=== PATIENT | female | born 1945 | race Caucasian/White ===

== ENCOUNTER 2017-04-16 17:44 | Inpatient (IN) | payer OTHER ==
--- NOTE | 2017-04-16 18:11 | CPEKG ---
Heart Rate: 76 RR Interval: 789 P-R Interval: 188 QRSD Interval: 82 QT Interval: 408 QTC Interval: 459 P [place]: 49 QRS [place]: -12 T Wave [place]: 10 EKG Severity - ABNORMAL ECG - EKG Impression: SINUS RHYTHM EKG Impression: LEFT VENTRICULAR HYPERTROPHY Electronically Signed By: Dallas Tinajero 16-Apr-2017 18:49:48
[2017-04-16] MEDS ORDERED: NITROGLYCERIN/DEXTROSE 250 ML IV ONE (18:44)
[2017-04-16] MEDS ORDERED: ASPIRIN 81 MG CHEWABLE TAB PO ONE (18:44)
[2017-04-16 18:55] LABS: ANION GAP 12 mEq/L (8-16); CALCIUM 9.1 mg/dL (8.5-10.4); CARBON DIOXIDE 24 mEq/l (22-31); CHLORIDE 107 mEq/L (97-110); CREATININE 1.1 mg/dL (0.6-1.0); GLOMERULAR FILTRATION RATE 49; GLUCOSE 84 mg/dL (70-100); POTASSIUM 4.2 mEq/L (3.5-5.2); SODIUM 143 mEq/L (134-144)
[2017-04-16 18:57] LABS: % IMMATURE GRANULYOCYTES 0.6 % (0.0-1.1); ABSOLUTE IMMATURE GRANULOCYTES 0.03 10^3/uL (0.00-0.10); ADD DIFF? NO; ADD MORPH? NO; ADD SCAN? NO; ATYPICAL LYMPHOCYTE FLAG 20 (0-99); FRAGMENT RBC FLAG 0 (0-99); HEMATOCRIT 39.9 % (38.0-47.0); HEMOGLOBIN 13.6 g/dL (12.6-16.3); LEFT SHIFT FLG 0 (0-99); LIPEMIA HEMOLYSIS FLAG 90 (0-99); MEAN CELL HEMOGLOBIN CONCENTR. 34.1 g/dL (32.4-36.7); MEAN CELL VOLUME 90.9 fL (81.5-99.8); MEAN PLATELET VOLUME 10.3 fL (8.7-11.7); PLATELET CLUMPS FLAG 10 (0-99); PLATELET COUNT 193 10^3/uL (150-400); RED BLOOD CELL COUNT 4.39 10^6/uL (4.18-5.33); RED CELL DISTRIBUTION WIDTH 13.3 % (11.5-15.2)
--- NOTE | 2017-04-16 19:05 | EDPHY ---
H & P Time Seen by Provider: 04/16/17 18:04 HPI/ROS: CHIEF COMPLAINT: Chest pain HISTORY OF PRESENT ILLNESS: Patient is a history of cardiac stenting but is visiting from [place]. She can' t remember for last stent was in 2014 or 2010 but the symptoms are exactly which she had prior to her previous stenting. About once a year she gets the symptoms but she got these last week and then again on Wednesday and then since 2:00 p.m. today she has felt a heaviness in her chest which does not radiate and is located centrally and associated with feeling dizzy and lightheaded. Not short of breath. Little bit worse with exertion. Definitely not pleuritic. Symptoms moderate on arrival to the ER. REVIEW OF SYSTEMS: Eye: no change in vision ENT: no sore throat Cardiac: HPI Pulmonary: no cough or SOB Abdomen: no vomiting, diarrhea, abdominal pain Musculoskeletal: Intermittent bilateral leg cramping for years unchanged Skin: no rash Neuro: no headache Constitutional: no fever : no urinary symptoms A comprehensive 10 point review of systems is otherwise negative aside from elements mentioned in the history of present illness. PAST MEDICAL HISTORY: Coronary disease with cardiac stenting. Breast cancer diagnosed in December 2015 without current treatment. No previous history of DVT or PE. Social history: Visiting from [place], not a current smoker. General Appearance: Alert and conversant, cooperative. Eyes: No scleral icterus. ENT, Mouth: Normal mucous membranes. Respiratory: Normal respiratory effort, breath sounds equal, lungs are clear to auscultation. Not splinting. Cardiovascular: Regular rate and rhythm. No murmurs. Gastrointestinal: Abdomen is soft and non tender. Neurological: Alert and oriented x3. Normally conversant. Face symmetric, normal movement and sensation in all extremities. Skin: Warm and dry, no rashes. Musculoskeletal: No calf tenderness or edema. Psychiatric: Not agitated. Emergency Department course/MDM: Today, patient took a single nitroglycerin with a little bit of relief. She started on IV nitroglycerin and given oral aspirin. Concern for acute coronary syndrome given symptoms identical to her previous stenting. I think it is unlikely this symptoms are from pulmonary embolism, not pleuritic, no lower extremity tenderness or edema, not tachycardic or tachypneic or hypoxemic. Plan for labs to include troponin and admission to hospitalist service with Cardiology consultation. 2000: better with Nitroglycerin dripLucy at this time. Admit for risk stratification with chest pain in a patient with prior coronary disease and similar symptoms to previous coronary occlusions. 2046: Vish Frausto for cardiology will consult. 2129: No chest pain, 148 systolic blood pressure, on nitroglycerin drip. Smoking Status: Never smoked Constitutional: Initial Vital Signs Temperature (C) 36.8 C 04/16/17 17:46 Heart Rate 85 04/16/17 17:46 Respiratory Rate 18 04/16/17 17:46 Blood Pressure 209/98 H 04/16/17 17:46 O2 Sat (%) 98 04/16/17 17:46 O2 Delivery Mode Nasal Cannula O2 (L/minute) 2 Allergies/Adverse Reactions: No Known Allergies Allergy (Unverified 04/16/17 17:45) Home Medications: Medication Instructions Recorded Aspirin [Aspirin 81mg (*)] 81 mg PO HS 04/16/17 Carvedilol [Coreg (*)] 25 mg PO BIDMEAL 04/16/17 Cholecalciferol Vit D3 [Vitamin D3 1,000 units PO DAILY 04/16/17 (*)] Herbals/Supplements -Info Only 1 ea PO DAILY 04/16/17 Isosorbide Mononitrate [Isosorbide 60 mg PO DAILY 04/16/17 Mononitrate ER] Medical Decision Making - Diagnostics EKG Interpretation: 12-lead EKG interpreted by me; official reading is in trace master. My interpretation is sinus rhythm with LVH, rate 76, no acute ST changes. Imaging Results: Imaging Impressions Chest X-Ray 04/16/17 18:44 Impression: Coronary stents. No acute cardiopulmonary features. Differential Diagnosis: Differential diagnosis considered for chest pain including but not limited to myocardial ischemia, aortic dissection, pericarditis, pulmonary embolus, chest wall pain, pleural inflammation and pulmonary infectious causes. Critical Care Time: Critical care time spent by me, Dr. Tinajero, exclusively with the care of this patient was 30 minutes, exclusive of PA or INVESTIGATOR FRAUD time and exclusive of separate procedures. The organ system at risk was cardiovascular and I ordered oral aspirin, IV nitroglycerin, consultation with hospitalist and to stabilize the patient and prevent worsening of the patient's condition. - Data Points Laboratory Results: Laboratory Results 04/16/17 18:04 04/16/17 18:04 04/16/17 04/16/17 18:04 18:04 WBC 5.41 10^3/uL 10^3/uL (3.80-9.50) RBC 4.39 10^6/uL 10^6/uL (4.18-5.33) Hgb 13.6 g/dL g/dL (12.6-16.3) Hct 39.9 % % (38.0-47.0) MCV 90.9 fL fL (81.5-99.8) MCH 31.0 pg pg (27.9-34.1) MCHC 34.1 g/dL g/dL (32.4-36.7) RDW 13.3 % % (11.5-15.2) Plt Count 193 10^3/uL 10^3/uL (150-400) MPV 10.3 fL fL (8.7-11.7) Neut % (Auto) 65.6 % % (39.3-74.2) Lymph % (Auto) 22.2 % % (15.0-45.0) [place] % (Auto) 9.1 % % (4.5-13.0) Eos % (Auto) 1.8 % % (0.6-7.6) Baso % (Auto) 0.7 % % (0.3-1.7) Nucleat RBC Rel Count 0.0 % % (0.0-0.2) Absolute Neuts (auto) 3.55 10^3/uL 10^3/uL (1.70-6.50) Absolute Lymphs (auto) 1.20 10^3/uL 10^3/uL (1.00-3.00) Absolute Monos (auto) 0.49 10^3/uL 10^3/uL (0.30-0.80) Absolute Eos (auto) 0.10 10^3/uL 10^3/uL (0.03-0.40) Absolute Basos (auto) 0.04 10^3/uL 10^3/uL (0.02-0.10) Absolute Nucleated RBC 0.00 10^3/uL 10^3/uL (0-0.01) Immature Gran % 0.6 % % (0.0-1.1) Immature Gran # 0.03 10^3/uL 10^3/uL (0.00-0.10) Sodium 143 mEq/L mEq/L (134-144) Potassium 4.2 mEq/L mEq/L (3.5-5.2) Chloride 107 mEq/L mEq/L (97-110) Carbon Dioxide 24 mEq/l mEq/l (22-31) Anion Gap 12 mEq/L mEq/L (8-16) BUN 16 mg/dL mg/dL (7-23) Creatinine 1.1 mg/dL H mg/dL (0.6-1.0) Estimated GFR 49 Glucose 84 mg/dL mg/dL (70-100) Calcium 9.1 mg/dL mg/dL (8.5-10.4) Troponin I < 0.012 ng/mL ng/mL (0-0.034) Medications Given: Discontinued Medications Aspirin (Aspirin) 324 mg PO EDNOW ONE Stop: 04/16/17 18:45 Last Admin: 04/16/17 19:01 Dose: 324 mg Nitroglycerin/Dextrose (Nitroglycerin 200 Mcg/Ml (Premix)) 250 mls @ 0 mls/hr IV CONT ONE; Titrate PRN Reason: Protocol Stop: 04/16/17 18:45 Last Admin: 04/16/17 19:01 Dose: 250 mls Departure - Departure Disposition: [facility] Inpatient Acute Clinical Impression: Chest pain Qualifiers: Chest pain type: unspecified Qualified Code(s): R07.9 - Chest pain, unspecified Hypertension Qualifiers: Hypertension type: unspecified Qualified Code(s): I10 - Essential (primary) hypertension Condition: Good
[2017-04-16 19:07] LABS: TROPONIN I < 0.012 ng/mL (0-0.034)
[2017-04-16] MEDS ORDERED: NITROGLYCERIN/DEXTROSE 250 ML IV SCH (23:45)
[2017-04-16] MEDS ORDERED: ACETAMINOPHEN 325 MG TAB PO PRN (23:53)
[2017-04-16] MEDS ORDERED: ONDANSETRON 4 MG/2 ML VIAL IVP PRN (23:53)
[2017-04-16] MEDS ORDERED: ONDANSETRON DISINTEGRATING 4 MG TAB PO PRN (23:53)
[2017-04-17] MEDS: CARVEDILOL 25 MG TAB PO SCH ×3 (00:25→18:00)
[2017-04-17] MEDS: ATORVASTATIN CALCIUM 40 MG TAB PO SCH ×2 (00:46→08:39)
--- NOTE | 2017-04-17 00:52 | CPEKG ---
Heart Rate: 68 RR Interval: 882 P-R Interval: 204 QRSD Interval: 68 QT Interval: 428 QTC Interval: 456 P [place]: 55 QRS [place]: -7 T Wave [place]: -76 EKG Severity - BORDERLINE ECG - EKG Impression: SINUS RHYTHM EKG Impression: BORDERLINE T ABNORMALITIES, INFERIOR LEADS Electronically Signed By: Elder Kahn 18-Apr-2017 16:01:40
--- NOTE | 2017-04-17 02:32 | GHP ---
[f rep st] HISTORY AND PHYSICAL DATE OF ADMISSION: 04/16/2017 CHIEF COMPLAINT: Chest pain. HISTORY OF PRESENT ILLNESS: The patient is a 71-year-old female with a history of coronary artery disease, hypertension, and hyperlipidemia, who presents to the emergency department with chest pressure. She is visiting from [place]. Her son lives here and recently underwent surgery, so she came out to assist him in his postop course. Since her arrival about a week ago, she has had intermittent dizziness. She describes this as both vertiginous, as well as lightheaded. Today, while in the car running errands, she felt some dizziness again. Upon returning home and lying down in bed, she developed chest pressure. There was no associated nausea, diaphoresis, or shortness of breath. Her only accompanying symptom is the dizziness. She states this is very similar to her previous episodes of angina. She has had at least 4 angiograms in the past and has a total of 6 coronary stents. She reports very little oral intake over the past 24 hours. In general, she has been feeling poorly since arriving in [place]. Upon arrival to the emergency department, she was quite hypertensive with a blood pressure of 209/98. Her initial troponin is negative. Her EKG appears nonischemic. She was started on nitroglycerin drip which resolved her chest pain. However, she does report a recurrence of her pain, which she is currently rating at 2/10. Given her ongoing pain and cardiac risk factors, she is admitted to the hospital for further management. PAST MEDICAL HISTORY: 1. Coronary artery disease with history of 6 cardiac stents, most recently 5 years ago. 2. Hypertension. 3. Hyperlipidemia. 4. History of breast cancer diagnosed in December 2015, status post lumpectomy and radiation treatment. PAST SURGICAL HISTORY: History of 4 angiograms with percutaneous coronary intervention and 6 stents. MEDICATIONS: Please see [place] [facility] for complete updated outpatient medication list. ALLERGIES: No known drug allergies. SOCIAL HISTORY: The patient lives independently in [place] she is currently staying with her son, who lives locally. She is currently a nonsmoker. She has a 10 to [id number] history, but quit smoking in 1974. FAMILY HISTORY: Her father of an GA in his early 60s. REVIEW OF SYSTEMS: A 10-point review of systems was performed and is negative except as per HPI. OBJECTIVE: VITAL SIGNS: Currently, blood pressure 162/82, heart rate 66, respiratory rate 16, she is 98% on 2 L of oxygen. GENERAL: The patient is awake, alert, oriented, in no acute distress. HEENT: Head is atraumatic, normocephalic. Pupils equal, round, react to light. Extraocular muscles are intact. Oropharynx is clear. Mucous membranes are moist. NECK: Supple. There is no JVD. HEART: Regular rate and rhythm without murmur. LUNGS: Clear to auscultation bilaterally. ABDOMEN: Soft, nondistended, nontender, with normoactive bowel sounds. EXTREMITIES: Without cyanosis, clubbing, or edema. NEUROLOGIC: Grossly nonfocal. LABORATORY DATA: CBC is normal. Basic metabolic panel is remarkable for creatinine of 1.1, normal electrolytes. Troponin is negative. Chest x-ray shows no acute cardiopulmonary process. Coronary stents are noted. EKG shows normal sinus rhythm. She has small T-wave inversions in lead III. Otherwise, there are no ST-segment changes concerning for acute ischemia. ASSESSMENT AND PLAN: The patient is a 71-year-old female with history of coronary artery disease with 6 prior stents, hypertension, had hyperlipidemia, who presents to the emergency department with chest pain. 1. Chest pain with h/o CAD. Similar to prior anginal symptoms, pain relieved with nitroglycerin. Her cardiac risk factors include family history of premature heart disease, hypertension, hyperlipidemia, and known coronary disease. She has had 6 prior stents placed, the last of which was at least 5 years ago. She has no pleuritic symptoms and is neither tachycardic nor hypoxic , thus I doubt pulmonary embolism. Her initial troponin is negative. Initial EKG is nonischemic. Will repeat an EKG now to assess for dynamic changes. Continue nitro drip for pain control, as well as p.r.n. morphine. She received a full dose aspirin and will continue daily aspirin. Resume Coreg. Check a lipid panel and an INR in the morning. Trend her troponin. If her troponin is on the rise, will start her on a heparin drip given her recurrent pain. She will be n.p.o. at midnight as she may warrant angiogram in the morning. I discussed the case Dr. Abhilash Hargrove. Cards will consult in the am. 2. Hypertensive urgency. Her chest pain may be a symptom of her severe hypertension as she presented with a blood pressure of ~210/100. She is currently in the 160s over 80s, on a nitroglycerin drip, which is appropriate reduction of ~20%; this will be continued. Will also continue her Coreg. She will be monitored on telemetry. 3. Hyperlipidemia. I note she is not currently on statin therapy. Given her risk factors and presentation with chest pain concerning for angina, will go ahead and treat her with atorvastatin and check a lipid panel in the morning. 4. History of breast cancer. 5. Code status. Patient is full code. However, please note, she is a Jehov[employer]' s [employer] and does not want any blood transfusions, though I doubt this will be necessary. 6. Deep venous thrombosis prophylaxis. We will place SCDs for now. If she has a negative cardiac workup, she may be a candidate for discharge in the morning. However if she has a prolonged hospitalization, would start Lovenox. 7. Disposition. Patient is admitted to observation status. /[id number]/MODL MTDD
--- NOTE | 2017-04-17 05:57 | CPEKG ---
Heart Rate: 71 RR Interval: 845 P-R Interval: 196 QRSD Interval: 80 QT Interval: 428 QTC Interval: 466 P [place]: 53 QRS [place]: -4 T Wave [place]: 20 EKG Severity - NORMAL ECG - EKG Impression: SINUS RHYTHM Electronically Signed By: Elder Kahn 18-Apr-2017 16:01:40
[2017-04-17] MEDS ORDERED: LISINOPRIL 5 MG TAB PO SCH (06:05)
[2017-04-17 06:30] LABS: INR 0.97 (0.83-1.16); PROTIME(PATIENT) 12.8 SEC (12.0-15.0)
[2017-04-17 06:31] LABS: CHOLESTEROL 241 mg/dL (140-220); CHOLESTEROL/HDL RATIO 4.92 RATIO (1.00-4.44); HIGH DENSITY LIPOPROTEIN 49 mg/dL (40-85); LDL/HDL RATIO 3.39 RATIO (1.00-3.22); LOW DENSITY LIPOPROTEIN 166 mg/dL (80-100); NON-HIGH DENSITY LIPOPROTEIN 192 mg/dL (90-129); TRIGLYCERIDE 130 mg/dL (35-135); VERY LOW DENSITY LIPOPROTEINS 26 mg/dL (8-25)
[2017-04-17 06:42] LABS: TROPONIN I < 0.012 ng/mL (0-0.034)
[2017-04-17] MEDS: ASPIRIN 81 MG CHEWABLE TAB PO SCH (08:10)
[2017-04-17] MEDS ORDERED: amLODIPine BESYLATE 5 MG TAB PO SCH ×2 (09:30→13:39)
[2017-04-17] MEDS ORDERED: LIDOCAINE 1% 300 MG/30 ML SDV ONE (09:48)
[2017-04-17] MEDS ORDERED: VERAPAMIL 5 MG/2 ML VIAL ONE (09:49)
[2017-04-17] MEDS ORDERED: HEPARIN 10,000 UNIT/10 ML MDV ONE (09:49)
[2017-04-17] MEDS ORDERED: MIDAZOLAM 2 MG/2 ML VIAL ONE (09:49)
[2017-04-17] MEDS ORDERED: IOPAMIDOL (ISOVUE-370) 150 ML BTL IV ONE ×2 (09:49→11:20)
[2017-04-17] MEDS ORDERED: fentaNYL 100 MCG/2 ML INJ ONE (09:49)
--- NOTE | 2017-04-17 09:58 | GCON ---
[f rep st] CONSULTATION CARDIOLOGY CONSULTATION REFERRING PHYSICIAN: Dr. Alexandra Topete REASON FOR CONSULTATION: Chest pain, hypertensive urgency. HISTORY OF PRESENT ILLNESS: The patient is a pleasant 71-year-old female with a known history of coronary artery disease, hypertension, hyperlipidemia, as well as a history of breast cancer status post lumpectomy and radiation in December 2015, who is visiting her son who lives locally from [place]. She states that over the last approximately 6 weeks, she has been experiencing intermittent episodes of substernal chest tightness that occurs primarily at rest. Symptoms last for minutes and resolve spontaneously. She denies any radiation of the symptoms. No associated shortness of breath, nausea, vomiting , or diaphoresis. She does admit to intermittently having dizziness and lightheadedness associated with her chest tightness. She does note that the symptoms have been occurring with increasing frequency over the last 6 weeks. She came to [place] to be with her son who is recovering from a knee surgery. She has noticed episodes of exertional chest tightness with ambulation around her son's neighborhood where she is staying. These symptoms resolve within minutes of rest. She also has intermittent episodes of dizziness and lightheadedness that are not associated with chest tightness. These episodes are not preceded by palpitations. No associated near -syncope or syncope. The patient has no known history of arrhythmias of any kind, and no history of atrial fibrillation. Currently, at the time, she is resting comfortable. [facility] due to progression of her symptoms. Upon her arrival in the emergency department, she was found to be markedly hypertensive with initial systolic blood pressure of over 200. She is on Coreg 25 mg p.o. b.i.d. and Imdur 60 mg once daily at home. She had admits to medical compliance. Currently, at the time of my exam, she is resting comfortably without complaint. She has no complaints of chest tightness, chest pressure, dizziness , or lightheadedness during my exam. She remains in sinus rhythm. She is currently on a nitroglycerin drip at 3 mL with systolic blood pressure in the 150s to the 170s. REVIEW OF SYSTEMS: Positive for chest pressure and tightness, dizziness and lightheadedness. Negative for shortness of breath, dyspnea, PND, orthopnea, or lower extremity edema. Negative for nausea, vomiting, diaphoresis. Negative for abdominal pain, back pain, or flank pain. No complaints of bleeding. PAST MEDICAL HISTORY: 1. Coronary artery disease with previous history of 6 stents. Her most recent cardiac catheterization was approximately 5 years ago. She has had no further risk stratification. 2. Hypertension. 3. Hyperlipidemia, intolerant to multiple statins. LDL of 166. 4. History of breast cancer status post lumpectomy, treated with radiation in December 2015. PAST SURGICAL HISTORY: Lumpectomy, as stated above, in December 2015. MEDICATIONS ON ADMISSION: Include aspirin 81 mg daily, Coreg 25 mg p.o. b.i.d. , isosorbide mononitrate 60 mg once daily, vitamin D3 1000 units daily, and herbal supplements once daily. ALLERGIES: None to medications. SOCIAL HISTORY: She is a former smoker. Smoked for approximately 20 years. She quit in 1974. She lives with her son. She does not drink alcohol. FAMILY HISTORY: Her father of a myocardial infarction in his 60s. No other family members with known heart disease. PHYSICAL EXAMINATION: VITAL SIGNS: Blood pressure is currently 155/79, heart rate of 71, sinus rhythm, respiratory rate of 16, oxygen saturation 96% on room air. Temperature 36.6. GENERAL: She is awake, alert, oriented, appropriate. No apparent distress. NECK: There is no evidence of JVP or carotid bruits. LUNGS: Clear to auscultation bilaterally. CARDIAC: S1, S2. Regular rate and rhythm. No murmurs, rubs, or gallops. ABDOMEN: Soft, nontender, nondistended. EXTREMITIES: Lower extremities are without cyanosis, clubbing or edema. She has a 2+ right radial artery pulse. She has 2+ dorsalis pedis and posterior tibial pulses bilaterally. LABORATORY AND DIAGNOSTIC DATA: White blood cell count 5.41, hemoglobin 13.6, hematocrit 39.9, platelet count 193. INR 0.97. Sodium 143, potassium 4.2, chloride 107, bicarb 24, BUN 16, creatinine 1.1. Troponin less than 0.012 x3. Total cholesterol 241, calculated LDL 166, HDL 49, triglycerides of 130. EKG from this morning at 5:55 a.m. demonstrates sinus rhythm at 71 beats per minute with normal intervals and normal axis. Nonspecific ST-T wave changes in leads V2 as well as lead III. Chest x-ray: No acute cardiopulmonary process. IMPRESSION: 1. Hypertensive urgency. 2. Chest tightness which represents her anginal equivalent. 3. History of coronary artery disease with multiple percutaneous coronary interventions in the past, most recently, 5 years ago. 4. Hyperlipidemia with intolerance to statins. The patient is a pleasant 71-year-old female with known heart disease with exertional chest tightness as well as chest tightness at rest concerning for unstable angina that is been progressive over the last approximately 6 weeks. She presents with hypertensive urgency and chest tightness. Blood pressure has improved with nitroglycerin drip. In the setting of her progression of her chest symptoms, would recommend diagnostic left heart catheterization. Risks and benefits have been reviewed with patient. She is agreeable to pursue. PLAN: 1. Patient has been given her Coreg 25 mg p.o. x1 this morning. 2. Continue nitro drip at 3 mL. 3. Add amlodipine 5 mg p.o. daily, first dose now. 4. Plan for diagnostic left heart catheterization to be done this morning. 45 minutes spent coordinating care /[id number]/YARITZAL ELLYD
--- NOTE | 2017-04-17 11:03 | HOSPPROG ---
Hospitalist Progress Note Assessment/Plan: #CAD: s/p cath with PCI LCx. Dual antiplatelet therapy, BB. Intolerant to statin #HTN: started Norvasc. Off nitro gtt #HLD: intolerant to statin #Diet: cardiac #Disp: warrants inpt admission with PCI, requiring telemetry and BP control. Can likely DC in morning if clinically stable Subjective: no CP or COLINDRES now Objective: Vital Signs Temp Pulse Resp BP Pulse Ox 36.8 C 72 16 170/77 H 97 04/17/17 09:39 04/17/17 09:39 04/17/17 09:39 04/17/17 10:46 04/17/17 09:39 PT 12.8 SEC (12.0-15.0) 04/17/17 06:00 INR 0.97 (0.83-1.16) 04/17/17 06:00 - Physical Exam Constitutional: no apparent distress Eyes: PERRL Ears, Nose, Mouth, Throat: moist mucous membranes Cardiovascular: regular rate and rhythym Respiratory: no respiratory distress Gastrointestinal: normoactive bowel sounds Genitourinary: no bladder fullness Skin: warm Musculoskeletal: full muscle strength, other (radial access site with mild oozing) Neurologic: AAOx3, CN II-XII Intact Psychiatric: interacting appropriately ICD10 Worksheet Patient Problems: Problems Problem Status Onset CAD (coronary artery disease) Acute Chest pain Acute Hypertension Acute Stented coronary artery Acute
[2017-04-17] MEDS ORDERED: NITROGLYCERIN 1,500 MCG/15 ML VIAL MISC ONE (11:21)
[2017-04-17] MEDS ORDERED: CLOPIDOGREL BISULFATE 75 MG TAB ONE (11:55)
[2017-04-17] MEDS ORDERED: NITROGLYCERIN 0.4 MG BTL SL PRN (12:20)
[2017-04-17] MEDS ORDERED: TEMAZEPAM 15 MG CAP PO PRN (12:20)
[2017-04-17] MEDS ORDERED: LORazepam 2 MG/ML INJ IVP PRN (12:20)
[2017-04-17] MEDS ORDERED: CLOPIDOGREL BISULFATE 75 MG TAB PO ONE (12:20)
[2017-04-17] MEDS ORDERED: ATROPINE SULFATE 1 MG/10 ML SYR IVP PRN (12:20)
--- NOTE | 2017-04-17 12:27 | PDDXCAT ---
Diagnostic Cath Note - . Date: 04/17/17 Third Hand: Delvin Indication: CCC Class III and IV angina on medical treatment - Procedure Access: right wrist Procedure: left heart catheterization, coronary angiography, left ventriculogram - Materials Left Heart Cath size: 5F Left Heart Cath materials: pigtail ([email or web address]) - Findings-Left Heart Catheterization LM: Unobstructed LAD: Calcified, diffuse luminal irregularities, stent widely patent. LCX: 99% stenosis at the origin of the 1st stent. Diffuse severe atheroma. Calcified. RCA: Diffuse 40-50% luminal irregularities with critical stenosis of a small posterolateral branch very far distally. EDP: 14 mm of mercury LVEF: 65% Wall motion: Normal Complications: None Estimated blood loss: <50ml Closure method: TR Band Assessment: Unstable angina with subtotal stenosis of the circumflex artery. Severe jena 3 vessel disease without new focal stenosis. Patent RCA, LAD stents. Normal left ventricular function. Plan: PCI of the circumflex. Aggressive secondary prevention. Intervention: Procedure: PCI and stenting of the proximal circumflex artery. After reviewing diagnostic angiograms it was elected to proceed with urgent PCI. Patient was anticoagulated with heparin. Therapeutic ACT was confirmed. The sheath in the radial artery was upsized to a 6 Welsh. Using a 6 Welsh Q 3.5 guiding catheter the left main was selectively intubated. Using a 0.014 luge wire the circumflex artery stenosis was crossed and the wire placed in the distal vessel. Pre dilatation was performed with a 2.5 mm balloon. Repeat angiograms revealed RAMSEY grade 2-3 flow with significant restenosis of the stent. Attempts at crossing into the artery with a stent were made but failed. A 0.014 mailman wire was placed in the vessel. This was used as a bakari. Again stents would not cross. A 3 mm balloon was used to pre dilate the proximal circumflex. With this additional pre dilatation the 2.5 x 20 mm synergy stent was placed far distally in the old stent. It was deployed using a single inflation. Stent balloon was used to pre dilate the proximal segment. A 3.0 x 20 mm synergy stent was placed proximally with the proximal and at the ostium. The Mailman wire had been withdrawn. Stents were deployed. There was RAMSEY grade 3 flow. A 3 mm balloon noncompliant was used to post dilate the stents. Repeat angiogram showed RAMSEY grade 3 flow. Conclusions: Successful PCI and stenting of the circumflex. Plan for aggressive secondary prevention. Dual antiplatelet therapy for 1 year. Results discussed with the patient's family. Patient Problems: Problems Problem Status Onset Stented coronary artery Acute CAD (coronary artery disease) Acute Chest pain Acute Hypertension Acute
[2017-04-17] MEDS ORDERED: NS 1,000 ML IV SCH (12:30)
--- NOTE | 2017-04-17 12:43 | CPEKG ---
Heart Rate: 61 RR Interval: 984 P-R Interval: 192 QRSD Interval: 84 QT Interval: 452 QTC Interval: 456 P [place]: 30 QRS [place]: -18 T Wave [place]: 25 EKG Severity - ABNORMAL ECG - EKG Impression: SINUS RHYTHM EKG Impression: PROBABLE LVH WITH SECONDARY REPOL ABNRM Electronically Signed By: Chris Arevalo 19-Apr-2017 12:15:49
[2017-04-17] MEDS ORDERED: amLODIPine BESYLATE 5 MG TAB PO ONE (13:38)
[2017-04-18 05:10] LABS: % IMMATURE GRANULYOCYTES 0.4 % (0.0-1.1); ABSOLUTE IMMATURE GRANULOCYTES 0.02 10^3/uL (0.00-0.10); ADD DIFF? NO; ADD MORPH? NO; ADD SCAN? NO; ATYPICAL LYMPHOCYTE FLAG 0 (0-99); FRAGMENT RBC FLAG 0 (0-99); HEMATOCRIT 38.6 % (38.0-47.0); HEMOGLOBIN 13.2 g/dL (12.6-16.3); LEFT SHIFT FLG 10 (0-99); LIPEMIA HEMOLYSIS FLAG 90 (0-99); MEAN CELL HEMOGLOBIN 31.3 pg (27.9-34.1); MEAN CELL HEMOGLOBIN CONCENTR. 34.2 g/dL (32.4-36.7); MEAN CELL VOLUME 91.5 fL (81.5-99.8); MEAN PLATELET VOLUME 10.2 fL (8.7-11.7); PLATELET CLUMPS FLAG 10 (0-99); PLATELET COUNT 152 10^3/uL (150-400); RED BLOOD CELL COUNT 4.22 10^6/uL (4.18-5.33); RED CELL DISTRIBUTION WIDTH 13.2 % (11.5-15.2)
[2017-04-18 05:25] LABS: ALBUMIN 3.6 g/dL (3.5-5.0); ANION GAP 9 mEq/L (8-16); ASPARTATE AMINOTRANSFERASE 19 IU/L (14-46); BILIRUBIN,TOTAL 0.9 mg/dL (0.1-1.4); CALCIUM 8.5 mg/dL (8.5-10.4); CARBON DIOXIDE 19 mEq/l (22-31); CHLORIDE 116 mEq/L (97-110); CREATININE 0.7 mg/dL (0.6-1.0); GLOMERULAR FILTRATION RATE > 60; GLUCOSE 84 mg/dL (70-100); LACTATE DEHYDROGENASE 414 IU/L (313-618); MAGNESIUM 2.3 mg/dL (1.6-2.3); POTASSIUM 3.9 mEq/L (3.5-5.2); SODIUM 144 mEq/L (134-144)
--- NOTE | 2017-04-18 06:05 | CPEKG ---
Heart Rate: 62 RR Interval: 968 P-R Interval: 200 QRSD Interval: 88 QT Interval: 428 QTC Interval: 435 P [place]: 46 QRS [place]: -7 T Wave [place]: 36 EKG Severity - ABNORMAL ECG - EKG Impression: SINUS RHYTHM EKG Impression: LVH WITH SECONDARY REPOLARIZATION ABNORMALITY EKG Impression: ANTERIOR Q WAVES, POSSIBLY DUE TO LVH Electronically Signed By: Chris Tong 19-Apr-2017 17:22:32
[2017-04-18] MEDS: ATORVASTATIN CALCIUM 40 MG TAB PO SCH (08:19)
[2017-04-18] MEDS: CARVEDILOL 25 MG TAB PO SCH (08:20)
[2017-04-18] MEDS ORDERED: CLOPIDOGREL BISULFATE 75 MG TAB PO SCH (09:00)
[2017-04-18] MEDS ORDERED: ASPIRIN EC 325 MG TAB PO SCH (09:00)
[2017-04-18] MEDS ORDERED: amLODIPine BESYLATE 5 MG TAB PO SCH ×2 (09:00)
[2017-04-18] MEDS: ASPIRIN 81 MG CHEWABLE TAB PO SCH (09:38)
--- NOTE | 2017-04-18 10:10 | SOAPPROG ---
BRITTANY Progress Note Assessment/Plan: Assessment: 1. Severe coronary artery disease status post PCI and stenting of the circumflex artery. 2. Hyperlipidemia. 3. Hypertension. 4. Multiple drug intolerances. 5. History of fibromyalgia. Procedures: 04/17/2017: Left heart catheterization with PCI and stenting of the circumflex for both InStent restenosis and de Judith lesions. Ejection fraction normal. Impression: Patient clearly has severe aggressive coronary artery disease. Secondary prevention has been difficult with intolerance to most drugs. I had a long discussion with her and her family this morning discussing options including continuing on our current path with likely need from multiple procedures in the future, development of heart failure, possible sudden etc. Versus an attempt at aggressive secondary prevention with careful attention to drug choices, active communication between her and her primary care providers in [place]. In the short term we will continue dual antiplatelet therapy. This should be uninterrupted for 1 year. We will resume low-dose Lipitor 10 mg a day to see how she tolerates it. Continue 3 drug therapy for hypertension. Patient will need close follow-up in [place]. I have asked her to stop checking her blood pressures routinely. Patient could be discharged home today from my point of view. Would plan to see her in the office this coming week. Encouraged her to begin walking daily. Puncture site healing well without complication. Plan: 04/18/17 10:07 Subjective: Feeling much better this morning. No further chest pressure. No dizziness. No PND orthopnea. No syncope or near syncope. Objective: Medications Generic Name Dose Route Start Last Admin Trade Name Freq PRN Reason Stop Dose Admin Carvedilol 25 mg 04/17/17 00:00 04/18/17 08:20 Coreg PO 10/14/17 00:00 25 mg BIDMEAL [facility] Clopidogrel Bisulfate 75 mg 04/18/17 09:00 04/18/17 08:20 Plavix PO 10/15/17 08:59 75 mg DAILY [facility] Amlodipine Besylate 5 mg 04/18/17 09:00 04/18/17 08:20 Norvasc PO 10/15/17 08:59 5 mg DAILY [facility] Aspirin Buffered 325 mg 04/18/17 09:00 04/18/17 09:38 Aspirin Ec PO 10/15/17 08:59 325 mg DAILY [facility] Atorvastatin Calcium 40 mg 04/17/17 00:25 04/18/17 08:19 Lipitor PO 10/14/17 00:24 40 mg DAILY [facility] Vital Signs Temp Pulse Resp BP Pulse Ox 36.5 C 77 15 179/79 H 97 04/18/17 07:33 04/18/17 07:33 04/18/17 07:33 04/18/17 07:33 04/18/17 07:33 Laboratory Results 04/18/17 04:22 04/18/17 04:22 04/17/17 04/18/17 04/19/17 05:59 05:59 05:59 Intake Total 600 Output Total 700 Balance -100 PT 12.8 SEC (12.0-15.0) 04/17/17 06:00 INR 0.97 (0.83-1.16) 04/17/17 06:00 Laboratory Tests 04/16/17 04/16/17 04/17/17 00:20 18:04 06:00 Troponin I < 0.012 < 0.012 < 0.012 LDL Cholesterol, Calc 166 H - Time Spent With Patient Time Spent With Patient: 30 minutes Physical Exam - Physical Exam General Appearance: alert, no apparent distress EENT: PERRL/EOMI Neck: non-tender, full range of motion, supple Respiratory: chest non-tender, lungs clear, normal breath sounds Cardiac/Chest: normal peripheral pulses, regular rate, rhythm, No edema, No gallop, No JVD Peripheral Pulses: 1+: carotid (R), carotid (L), femoral (R), femoral (L), dorsalis-pedis (R), dorsalis-pedis (L) Abdomen: normal bowel sounds, non-tender, soft, No organomegaly Back: Normal inspection Skin: normal color, warm/dry, No rash Lymphatic: no adenopathy Extremities: normal range of motion, No pedal edema, No calf tenderness Neuro/Psych: no motor/sensory deficits, alert, normal mood/affect, No facial droop ICD10 Worksheet Patient Problems: Problems Problem Status Onset Stented coronary artery Acute CAD (coronary artery disease) Acute Chest pain Acute Hypertension Acute Review of Systems - Review of Systems Constitutional: denies: chills, fever EENTM: no symptoms reported Respiratory: no symptoms reported Cardiac: no symptoms reported Gastrointestinal/Abdominal: no symptoms reported Genitourinary: no symptoms Musculoskelatal: joint pain, muscle pain, muscle stiffness Skin: no symptoms. denies: rash Neurological: no symptoms Hematologic/Lymphatic: no symptoms reported Immunologic/allergic: no symptoms reported
[2017-04-18] MEDS ORDERED: LOSARTAN POTASSIUM 25 MG TAB PO SCH (10:15)
--- NOTE | 2017-04-18 11:17 | HOSPPROG ---
Hospitalist Progress Note Assessment/Plan: #CAD: s/p cath with PCI LCx. Dual antiplatelet therapy, BB. Add low-dose statin given severe disease. #HTN: Norvasc and Cozaar #HLD: intolerant to statin, but restart low-dose given severe disease #Diet: cardiac #Disp: DC today Critical care time spent: 35 min reviewing records, counseling pt and family on medications. Subjective: no CP or SOB. radial cath site healing well Objective: Vital Signs Temp Pulse Resp BP Pulse Ox 36.5 C 77 15 166/77 H 97 04/18/17 07:33 04/18/17 07:33 04/18/17 07:33 04/18/17 10:40 04/18/17 07:33 Laboratory Results 04/18/17 04:22 04/18/17 04:22 04/17/17 04/18/17 04/19/17 05:59 05:59 05:59 Intake Total 600 Output Total 700 Balance -100 PT 12.8 SEC (12.0-15.0) 04/17/17 06:00 INR 0.97 (0.83-1.16) 04/17/17 06:00 - Physical Exam Constitutional: no apparent distress Eyes: PERRL Ears, Nose, Mouth, Throat: moist mucous membranes Cardiovascular: regular rate and rhythym, no murmur, rub, or gallop, No edema Respiratory: no respiratory distress, no rales or rhonchi Gastrointestinal: normoactive bowel sounds, soft, non-tender abdomen Genitourinary: no bladder fullness Skin: warm Musculoskeletal: other (right radial cath site without hematoma, +2 pulse) Neurologic: AAOx3, CN II-XII Intact Psychiatric: interacting appropriately ICD10 Worksheet Patient Problems: Problems Problem Status Onset CAD (coronary artery disease) Acute Chest pain Acute Hypertension Acute Stented coronary artery Acute
[2017-04-18 11:48] VITALS: BP 174/71; PULSE 70; RESP 14; TEMP 97.6; O2SAT 96
--- NOTE | 2017-04-18 12:46 | GDS ---
[f rep st] DISCHARGE SUMMARY DISCHARGE DIAGNOSES: 1. Severe coronary artery disease. 2. Hyperlipidemia. 3. Accelerated hypertension. 4. History fibromyalgia. HISTORY OF PRESENT ILLNESS: The patient is a pleasant 71-year-old female with a known history of severe coronary artery disease with 6 prior stents, hypertension, hyperlipidemia and breast cancer, who was visiting her son here in [place] from [place]. Over the last 6 weeks, she has had intermittent episodes of substernal chest tightness occurring primarily at rest. These last for a few minutes and resolve on their own. No associated radiation, shortness of breath, vomiting or diaphoresis. She will intermittently have dizziness, and lightheadedness. These symptoms have been occurring more frequently over the last few weeks. She has noticed episodes of chest tightness with ambulation in the neighborhood. Given progression of these symptoms, she presented to the emergency room and was found to have a systolic blood pressure greater than 200. INTERVENTIONS: Cardiac cath on 04/17/2017: Left circumflex 99% stenosis at the origin of the first stent. RCA diffuse 40-50 luminal irregularities with critical stenosis of posterior lateral branch. OM nonobstructive. LAD calcified. Diffuse luminal irregularities. Stent widely patent. PCI of circumflex. HOSPITAL COURSE BY PROBLEM: 1. Severe coronary artery disease: underwent PCI with stent placement to the left circumflex. Optimize medical management: Plavix, ASA 325, Cozaar. Continue Coreg. Has intolerance to statins previously, but will start at a low dose given significant disease. No evidence of arrhythmia. Radial catheterization site is healing well. 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 2. Hypertension. Added Norvasc and Cozaar. 3. Hyperlipidemia. Low-dose statin. 4. History of breast cancer status post lumpectomy. 5. Fibromyalgia. DISPOSITION: The patient is stable for discharge. NEW MEDICATIONS: 1. Plavix. 2. Aspirin 325. 3. Cozaar 25 mg daily. 4. Norvasc 5 mg daily. 5. Atorvastatin 10 mg daily. Time spent on discharge: >35 min coordinating care and counseling pt and family on medications /[id number]/MODL MTDD
[2017-04-19] MEDS ORDERED: ATORVASTATIN CALCIUM 10 MG TAB PO SCH (09:00)
== END 2017-04-18 12:50 | disposition home or self-care (01) | DRG 247 ==
LOC: INTOOBSV 20:01 → F2W 04-17 09:26 → OBSVTOIN 04-17 17:16
PROVIDERS: ADMIT Internal Medicine; ATTEND Internal Medicine
DX: I25.110 Atherosclerotic heart disease of native coronary artery with unstable angina pectoris (principal); T82.857A Stenosis of other cardiac prosthetic devices, implants and grafts, initial encounter; I16.0 Hypertensive urgency; E78.5 Hyperlipidemia, unspecified; Z85.3 Personal history of malignant neoplasm of breast; Z87.891 Personal history of nicotine dependence; Z92.3 Personal history of irradiation
CPT/HCPCS: 96374; C1725; C1769; C1874; C1887; C9600; J1644; J2250; J3010; Q9967